=== PATIENT | female | born 1950 | race Caucasian/White ===

== ENCOUNTER 2021-06-08 06:24 | Emergency (ER) | payer MEDICARE, BC ==
[2021-06-08] MEDS ORDERED: Acetaminophen 500 MG Tab PO STA (06:25)
[2021-06-08] MEDS ORDERED: traMADol 50 MG Tab PO STA (06:25)
[2021-06-08 06:30] VITALS: BP 174/108; PULSE 83
== END 2021-06-08 07:25 | disposition home or self-care (01) ==
LOC: FB.ED 06:24
DX: S93.402A Sprain of unspecified ligament of left ankle, initial encounter (principal); X50.1XXA Overexertion from prolonged static or awkward postures, initial encounter
CPT/HCPCS: 73610-LT; 99283-25; A9270-GY